=== PATIENT | female | born 1985 | race Caucasian/White ===

== ENCOUNTER 2017-08-23 17:09 | Emergency (ER) | payer OTHER ==
[~2017-08-23] VITALS: Ht 157.5 cm; Wt 61.7 kg
[2017-08-23 17:20] VITALS: Ht 157.5 cm; Wt 61.7 kg
[2017-08-23 18:16] VITALS: BP 127/83
== END 2017-08-23 18:16 | disposition home or self-care (01) ==
LOC: ED 17:09
DX: N61.0 Mastitis without abscess (principal)

== ENCOUNTER 2017-08-31 08:29 | Emergency (ER) | payer OTHER ==
[~2017-08-31] VITALS: Ht 157.5 cm; Wt 63.0 kg
[2017-08-31 08:46] VITALS: Ht 157.5 cm; Wt 63.0 kg
[2017-08-31 10:49] VITALS: BP 108/76
== END 2017-08-31 10:50 | disposition home or self-care (01) ==
LOC: ED 08:29
DX: N61.1 Abscess of the breast and nipple (principal)
CPT/HCPCS: J1885

== ENCOUNTER 2017-09-02 10:03 | Emergency (ER) | payer OTHER ==
[~2017-09-02] VITALS: Ht 157.5 cm; Wt 63.0 kg
[2017-09-02 10:14] VITALS: BP 108/68; Ht 157.5 cm; Wt 63.0 kg
== END 2017-09-02 10:50 | disposition home or self-care (01) ==
LOC: ED 10:03
DX: N61.1 Abscess of the breast and nipple (principal); Z48.01 Encounter for change or removal of surgical wound dressing
CPT/HCPCS: 90715

== ENCOUNTER 2018-03-09 08:30 | Emergency (ER) | payer OTHER ==
[~2018-03-09] VITALS: Ht 157.5 cm; Wt 63.6 kg
[2018-03-09 08:32] VITALS: Ht 157.5 cm; Wt 63.6 kg
[2018-03-09 09:51] VITALS: BP 127/85
== END 2018-03-09 09:52 | disposition home or self-care (01) ==
LOC: ED 08:30
DX: N64.52 Nipple discharge (principal); Z90.49 Acquired absence of other specified parts of digestive tract

== ENCOUNTER 2018-11-10 14:26 | Emergency (ER) | payer OTHER ==
[~2018-11-10] VITALS: Ht 157.5 cm; Wt 65.3 kg
[2018-11-10 14:30] VITALS: BP 124/74; Ht 157.5 cm; Wt 65.3 kg
== END 2018-11-10 17:00 | disposition home or self-care (01) ==
LOC: ED 14:26
DX: H92.02 Otalgia, left ear (principal); Z90.49 Acquired absence of other specified parts of digestive tract; Z86.39 Personal history of other endocrine, nutritional and metabolic disease

== ENCOUNTER 2019-02-17 17:52 | Emergency (ER) | payer OTHER ==
[~2019-02-17] VITALS: Ht 157.5 cm; Wt 65.3 kg
[2019-02-17 17:59] VITALS: Ht 157.5 cm; Wt 65.3 kg
[2019-02-17 20:33] LABS: BASOPHIL % 0.6 % (0-2); PLATELET COUNT 320 x10^3mcL (130-400); RED CELL DISTRIBUTION WIDTH 13.4 % (11.5-14.5)
[2019-02-17 20:46] LABS: CARBON DIOXIDE 24.9 mmol/L (21-32); CHLORIDE SERUM 103 mmol/L (98-107); CREATININE SERUM 0.8 mg/dL (0.6-1.0); GFR1 > 60 mL/min; GLUCOSE SERUM 91 mg/dL (74-106); SODIUM SERUM 140 mmol/L (136-145)
[2019-02-17 20:50] LABS: ALBUMIN 3.7 g/dL (3.4-5.0); ALKALINE PHOSPHATASE 92 U/L (46-116); ALT/SGPT 21 U/L (14-59); AMYLASE 58 U/L (25-115); AST/SGOT 19 U/L (15-37); BILIRUBIN TOTAL 0.9 mg/dL (0.20-1.00); LIPASE 60 IU/L (73-393); TOTAL PROTEIN, SERUM 7.9 g/dL (6.4-8.2)
[2019-02-17 22:33] VITALS: BP 92/57
== END 2019-02-17 22:38 | disposition home or self-care (01) ==
LOC: ED 17:52
PROVIDERS: Emergency Medicine
DX: O21.0 Mild hyperemesis gravidarum (principal); O99.281 Endocrine, nutritional and metabolic diseases complicating pregnancy, first trimester; E03.9 Hypothyroidism, unspecified; Z3A.01 Less than 8 weeks gestation of pregnancy; Z90.49 Acquired absence of other specified parts of digestive tract
CPT/HCPCS: J2405; J7030